=== PATIENT | female | born 1990 | race American Indian/Alaskan Native ===

== ENCOUNTER 2023-03-12 13:58 | Emergency (ER) | payer OTHER ==
[~2023-03-12] VITALS: Ht 175.3 cm; Wt 110.7 kg
[~2023-03-12 13:58] MED LIST: PERCOCET 5-3251 EACH PO
[2023-03-12] MEDS ORDERED: OMEPRAZOLE20 MG PO (14:10)
[2023-03-12] MEDS ORDERED: METFORMIN HCL750 MG PO (14:10)
[2023-03-12] MEDS ORDERED: PREDNISONE20 MG PO (14:44)
[2023-03-12] MEDS ORDERED: FAMCICLOVIR500 MG PO (14:44)
[2023-03-12 14:50] VITALS: BP 138/93
== END 2023-03-12 14:51 | disposition home or self-care (01) ==
LOC: ED 13:58
DX: G51.0 Bell's palsy (principal); E11.65 Type 2 diabetes mellitus with hyperglycemia; Z88.0 Allergy status to penicillin; Z88.1 Allergy status to other antibiotic agents; Z91.018 Allergy to other foods; Z79.84 Long term (current) use of oral hypoglycemic drugs; Z79.899 Other long term (current) drug therapy
CPT/HCPCS: 99284; A9270; J7512